=== PATIENT | female | born 1940 | race Caucasian/White ===

== ENCOUNTER 2017-06-08 21:12 | Emergency (ER) | payer MEDICARE ==
[2017-06-08 21:27] VITALS: BP 137/69
--- NOTE | 2017-06-08 21:36 | ED Physician Documentation ---
Upper Respiratory Symptoms - HISTORIAN Historian: patient - HPI Chief Complaint: Upper Respiratory Symptoms Onset: days ago Duration: constant Context: multiple patients. denies: recent foreign travel, insect bite(s), recent chemotherapy Severity: mild Associated Symptoms: fever, chills - ROS CONST/EYES: denies: weakness - PAST HX Lung Disease: COPD Other History: cancer chemo Allergies/Adverse Reactions: Allergies Allergy/AdvReac Type Severity Reaction Status Date / Time sulfamethoxazole Allergy Verified 06/08/17 21:22 [From Bactrim] trimethoprim [From Bactrim] Allergy Verified 06/08/17 21:22 Home Medications: Ambulatory Orders Medication Instructions Recorded Anastrozole [Anastrozole] 1 mg PO DAILY 02/23/14 Hydrochlorothiazide 25 mg PO DAILY 02/23/14 [Hydrochlorothiazide] - SOCIAL HX Smoking History: non-smoker Alcohol Use: none Drug Use: none - FAMILY HX Family History: none - VITAL SIGNS Vital Signs: Vital Signs Temp Pulse Resp BP Pulse Ox 102/83 02/23/14 17:46 - REVIEWED ASSESSMENTS Nursing Assessment Reviewed: Yes Vitals Reviewed: Yes ED Results Lab/Radiology - Lab Results Lab Results: flu (-) - Orders Orders: ED Orders Category Date Time Status INFLUENZA A&B Stat Lab 06/08/17 Uncollected Upper Respiratory Symptoms - EXAM General Appearance: no acute distress, alert EENT: eyes nml inspection, nml ENT inspection, pharyngeal erythema Neck: normal inspection, thyroid normal, supple. No: lymphadenopathy, stiff neck Respiratory: no resp. distress, breath sounds nml, no pain on inspiration, speaks full sentences Abdomen: non-tender CVS: reg rate & rhythm, heart sounds normal, equal pulses Skin: color nml, no rash, warm,dry Extremities: non-tender, normal range of motion, no evidence of injury, no edema Neuro/Psych: oriented x3 Discharge Clincal Impression: Common cold virus, Cough in adult Referrals: Bettye El FNP [Primary Care Provider] - 2 Days Condition: Stable Disposition: HOME, SELF-CARE Decision to Admit: NO Date of Decison to Admit: 06/08/17 Decision Time: 21:46
== END 2017-06-08 21:50 | disposition home or self-care (01) ==
LOC: ED 21:12
DX: J00 Acute nasopharyngitis [common cold] (principal)
CPT/HCPCS: 87400; 99282